=== PATIENT | male | born 1950 | race Caucasian/White ===

== ENCOUNTER 2018-09-11 18:36 | Emergency (ER) | payer OTHER, MEDICARE ==
[2018-09-11 18:51] VITALS: BMI 33.0
--- NOTE | 2018-09-11 19:17 | PDOC ---
History of Present Illness - General Chief Complaint: Injury Stated Complaint: FALL Time Seen by Provider: 09/11/18 19:17 History Source: Patient Exam Limitations: No Limitations - History of Present Illness Initial Comments: 09/11/18 20:04 Pt is a 68yo M with PMH of HTN, HLD BIBA s/p mechanical fall from 4 steps. Pt states he was walking down the stairs when he tripped and landed on his hands to prevent himself from hitting his head. He states in the process, he twisted his back. He is complaining of back pain in the lower back with pain radiating down his R thigh. Denies hitting his head, LOC, back injury, wrist pain, elbow pain, shoulder pain, abrasions, numbness/tingling. Past History - Past Medical History Allergies/Adverse Reactions: Allergies Allergy/AdvReac Type Severity Reaction Status Date / Time atorvastatin calcium Allergy Severe Verified 09/11/18 18:51 [From Lipitor] STATINS Allergy Uncoded 09/11/18 18:51 Home Medications: Ambulatory Orders Valsartan [Diovan] 320 mg PO HS 11/16/11 Amlodipine Besylate [Norvasc -] 10 mg PO DAILY #0 tablet 11/18/11 Triamterene [Dyrenium] 100 mg PO DAILY #0 capsule 11/18/11 Omeprazole [Prilosec] 20 mg PO HS 09/27/15 Multivitamins [Multivit ([facility] Form[facility])] 1 tab PO DAILY 09/28/15 Ubidecarenone [Co Q-10] 10 mg PO DAILY 09/28/15 Metoprolol Succinate [Toprol XL -] 50 mg PO HS 11/08/15 Red Yeast Rice Extract [Red Yeast Rice] 30 gm MC DAILY 11/08/15 Cyclobenzaprine HCl [Flexeril 10 mg] 10 mg PO TID PRN #12 tablet 09/11/18 Lidocaine 5% Patch [Lidoderm Patch -] 1 patch TP DAILY #7 patch 09/11/18 Anemia: No Asthma: Yes (MILD - NO MEDS) Cancer: No Cardiac Disorders: No CVA: No COPD: No CHF: No Dementia: No Diabetes: No GI Disorders: Yes (GERD, COLON POLYPS, DIVERTICULOSIS, HH, HEMORRHOIDS) Disorders: No HTN: Yes Hypercholesterolemia: Yes Liver Disease: No Seizures: Yes ( AN EIGHT YEAR OLD CHILD) Thyroid Disease: No - Surgical History Abdominal Surgery: No Appendectomy: No Cardiac Surgery: No Cholecystectomy: No Lung Surgery: No Neurologic Surgery: No Orthopedic Surgery: No - Suicide/Smoking/Psychosocial Hx Smoking Status: No Smoking History: Never smoked Have you smoked in the past 12 months: No Number of Cigarettes Smoked Daily: 0 Hx Alcohol Use: Yes (SOCIAL-4X A WEEK) Drug/Substance Use Hx: No Substance Use Type: None Hx Substance Use Treatment: No *Physical Exam - Vital Signs Last Vital Signs Temp Pulse Resp BP Pulse Ox 98.2 F 92 H 18 131/76 94 L 09/11/18 18:49 09/11/18 18:49 09/11/18 18:49 09/11/18 18:49 09/11/18 18:49 Moderate Sedation - Procedure Monitoring Vital Signs: Procedure Monitoring Vital Signs Temperature 98.2 F 09/11/18 18:49 Pulse Rate 92 H 09/11/18 18:49 Respiratory Rate 18 09/11/18 18:49 Blood Pressure 131/76 09/11/18 18:49 O2 Sat by Pulse Oximetry (%) 94 L 09/11/18 18:49 Medical Decision Making - Medical Decision Making 09/11/18 20:08 Pt is a 68yo M with PMH of HTN, HLD BIBA s/p mechanical fall from 4 steps. Did not injure head or back. No LOC. Vitals: wnl PE: +SLR on R and L side. No vertebral tenderness. Low suspicion for fracture given pt did not injure back or hips. Does not need imaging at this time. Pain seems more paraspinal/muscular in nature. Will give Tylenol, Toradol, Flexeril and Lidoderm Patch. Will reevaluate -Pt refusing Flexeril 09/12/18 01:18 Pt able to ambulate. Reports reduction of symptoms. Pt is ambulatory, no acute injury to back. Will refer to neurology for sciatica. Hemodynamically stable and can be dc home. Given return precautions. *DC/Admit/Observation/Transfer Diagnosis at time of Disposition: Back pain Qualifiers: Back pain location: low back pain Chronicity: acute Back pain laterality: right Sciatica presence: with sciatica Sciatica laterality: sciatica of right side Qualified Code(s): M54.41 - Lumbago with sciatica, right side - Discharge Dispostion Disposition: HOME Condition at time of disposition: Improved Decision to Admit order: No - Prescriptions Prescriptions: Cyclobenzaprine HCl [Flexeril 10 mg] 10 mg PO TID PRN #12 tablet PRN Reason: Lower Back Pain Lidocaine 5% Patch [Lidoderm Patch -] 1 patch TP DAILY #7 patch - Referrals Referrals: Naman Flor DO [Staff Physician] - - Patient Instructions Printed Discharge Instructions: DI for Low Back Pain Additional Instructions: You were seen in the emergency room today for lower back pain. You did not injure your back or hips when you fell, so imaging was not necessary at this time. You are most likely having muscle spasms and you may have Sciatica (pinched nerve). I recommend resting and not over exerting yourself. A prescription for Flexeril (cyclobenzaprine) was sent to your pharmacy. This medication can make you drowsy so do not take with alcohol or operate machinery or drive when taking this medication. A prescription for Lidoderm patch was sent to your pharmacy as well. Apply it and leave it on for up to 12 hours then remove it. Do not place another patch on until 12 hours after taking it off. I recommend seeing a neurologist if the Sciatica exists. You can see Dr. Flor . Come back to the emergency room if pain gets worse, you have weakness in your legs, you have increasing numbness or if any new concerning symptom develops. Thank you - Post Discharge Activity
[2018-09-11] MEDS ORDERED: ACETAMINOPHEN 500 MG TABLET (FP) PO ONE (19:38)
[2018-09-11] MEDS ORDERED: KETOROLAC TROMETHAMINE 30 MG/1 ML VIAL IM ONE (19:38)
[2018-09-11] MEDS ORDERED: LIDOCAINE 5% TOPICAL PATCH TP ONE (19:40)
[2018-09-11] MEDS ORDERED: CYCLOBENZAPRINE HCL 10 MG TABLET (FP) PO ONE (19:40)
[2018-09-11] MEDS ORDERED: LIDOCAINE 5% TOPICAL PATCH ONE (19:48)
[2018-09-11] MEDS ORDERED: CYCLOBENZAPRINE HCL 10 MG TABLET (FP) ONE (19:48)
[2018-09-11] MEDS ORDERED: ACETAMINOPHEN 325 MG TABLET (FP) ONE (19:48)
[2018-09-11] MEDS ORDERED: KETOROLAC TROMETHAMINE 30 MG/1 ML VIAL ONE (19:48)
--- NOTE | 2018-09-11 20:33 | PDOC ---
Attending Attestation - Resident Resident Name: RoxanneSaYodit - ED Attending Attestation I have performed the following: I have examined & evaluated the patient, The case was reviewed & discussed with the resident, I agree w/resident's findings & plan - HPI HPI: 09/11/18 20:27 68YOM, with a significant past medical history of HTN, who presents to the emergency department s/p mechanical fall with, right sided back and neck pain. As per patient, he slipped at home falling onto his hands and twisting his body. Patient endorses mild neck pain secondary to the fall and lower back pain radiating down his right leg with associated sharp shooting pains. able to ambulate. no head injury or LOC. no hand/arm or leg pain. no other s/s trauma. no anticoagulant use. no meds used [employer]. No sick contacts or travel. No new changes in medications. Allergies: Atorvastatin calciums, Statins Past Medical History: HTN Social history: Lives with family. No smoking. No alcohol. No illicit drugs. Surgical history: None - Physicial Exam PE: 09/11/18 20:29 General: NAD, well appearing Neck: no midline C spine tenderness, right cervical paravertebral TTP and trapezius spasm. ROM intact. Vascular: 2+ DP pulses symmetric and equal. Abdomen: soft NTND. Pelvis: stable, ROM at hip and knee joints intact. Back: no midline tenderness, no stepoffs, FROM. +right buttock, paraspinal TTP. Focused MSK/Neuro Exam notable for soft compartments, Cap refill <2 sec. Proximal and distal strength 5/5, tire manager strength 5/5 - equal and symmetric. Plantar flexion and dorsiflexion 5/5. FROM. Sensation grossly intact to light touch. Skin: color normal color, warm and well perfused. - Medical Decision Making 09/11/18 20:29\ DDx back pain: back strain, lumbago, spinal stenosis. Muscle spasm. Lumbar radiculopathy. Clinically doubt based on exam and clinical history: doubt bony fx/compression fx as no midline sx, no direct trauma. doubt cord compression or cauda equina, with low suspicion and no red flag sx such as fevers, IVDU, lumbar procedures, urinary/stool incontinence/retention, neurologic deficits or changes. hpi as documented VS wnl. obese, no respiratory distress, SpO2 94% analgesia with toradol, tylenol; declined flexeril. topical lidoderm. able to ambulate without difficulty, much more comfortable. supportive care measures, fall risk prevention and otc analgesia, rx flexeril PRN dispo Discussed results with patient and family, likely contusion and muscle strain. Pain control with OTC meds including tylenol PRN; no narcotics. PMD followup provided. rom exercises and can tolerate physical activity and ambulate 09/11/18 20:33 09/11/18 21:23
[2018-09-11 21:01] VITALS: BP 118/61; PULSE 78; TEMP 98.6
== END 2018-09-11 21:38 | disposition home or self-care (01) ==
LOC: JER 18:36
PROC: 3E0233Z Introduction of Anti-inflammatory into Muscle, Percutaneous Approach (ICD-10-PCS; principal; 2018-09-11)
DX: M54.41 Lumbago with sciatica, right side (principal); W10.8XXA Fall (on) (from) other stairs and steps, initial encounter; Y93.89 Activity, other specified; Y92.038 Other place in apartment as the place of occurrence of the external cause; Y99.8 Other external cause status; E78.00 Pure hypercholesterolemia, unspecified
CPT/HCPCS: 99282-25